=== PATIENT | male | born 1970 | race Caucasian/White ===

== ENCOUNTER → 2018-12-25 | Outpatient (REF) | payer MEDICARE | LOC: M SFHCPLAZ 07:16 | PROVIDERS: ATTEND Internal Medicine | DX: G44.1 Vascular headache, not elsewhere classified (principal) ==

== ENCOUNTER → 2019-07-12 | Outpatient (REF) | payer MEDICARE | LOC: M SFHCPLAZ 05:10 | PROVIDERS: ATTEND Urology | DX: I48.91 Unspecified atrial fibrillation (principal) ==